=== PATIENT | male | born 1950 | race Caucasian/White ===

== ENCOUNTER 2019-09-30 13:27 | Emergency (ER) | payer MEDICARE, BC ==
[~2019-09-30] VITALS: Ht 172.7 cm; Wt 70.3 kg
[2019-09-30] MEDS ORDERED: PLAVIX75 MG PO (13:40)
[2019-09-30] MEDS ORDERED: LIPITOR80 MG PO (13:41)
[2019-09-30] MEDS ORDERED: KEFLEX500 MG PO (14:08)
== END 2019-09-30 14:33 | disposition home or self-care (01) ==
LOC: ED 13:27
DX: L03.011 Cellulitis of right finger (principal); I25.10 Atherosclerotic heart disease of native coronary artery without angina pectoris; Z79.01 Long term (current) use of anticoagulants; Z79.899 Other long term (current) drug therapy
CPT/HCPCS: 99283; A9270